=== PATIENT | male | born 1970 | race African-American/Black ===

== ENCOUNTER 2017-11-03 14:22 | Emergency (ER) | payer OTHER ==
[~2017-11-03] VITALS: Ht 182.9 cm; Wt 99.8 kg
[~2017-11-03 14:22] MED LIST: AMLODIPINE BESYL5 MG PO
--- NOTE | 2017-11-03 15:38 | Emergency Room Report ---
History of Present Illness General Chief Complaint: Lower Extremity Injury Source: Patient Present Illness HPI 47 y.o. M with hx of HTN, uncontrolled, here c/o left ankle and left foot pain since this AM post twisting injury while running. pt denies fall, head trauma, denies pain radiation, tingling/numbness. rates pain 5/10 when walking and 2/10 when non ambulotary. did not take any pain meds. denies sob, palpitation, cp, vision changes, dizziness. does not take her BP med. Allergies: Coded Allergies: NO KNOWN DRUG ALLERGIES (Verified Allergy, Unknown, 11/03/17) Patient History Past Medical History: see triage record Past Surgical History: none Pertinent Family History: none Immunizations: UTD Reviewed Nursing Documentation: PMH: Agreed; PSxH: Agreed Nursing Documentation-PMH Hx Cardiac Problems: Yes Hx Hypertension: Yes Hx Cancer: No Hx Gastrointestinal Problems: No Review of Systems All Other Systems: negative except mentioned in HPI Physical Exam Vital Signs Date Time Temp Pulse Resp B/P (MAP) Pulse Ox O2 Delivery O2 Flow Rate FiO2 11/03/17 15:06 98.3 96 20 162/108 98 Room Air 98.2 Sp02 EP Interpretation: reviewed, normal General Appearance: normal inspection, well appearing, no apparent distress, alert, GCS 15 Head: normocephalic, atraumatic Eyes: bilateral eye normal inspection, bilateral eye PERRL ENT: normal ENT inspection Neck: normal inspection, full range of motion, supple Respiratory: normal inspection, chest non-tender, lungs clear, normal breath sounds, no rhonchi, no respiratory distress, no retraction, no accessory muscle use Cardiovascular #1: normal inspection, normal peripheral pulses, regular rate, rhythm, no edema, no gallop, no JVD, no murmur, no rub Cardiovascular #2: 2+ radial (R), 2+ radial (L), 2+ dorsalis pedis (R), 2+ dorsalis pedis (L) Gastrointestinal: normal inspection, normal bowel sounds, non tender, soft Rectal: deferred Genitourinary: deferred Musculoskeletal: back normal, digits/nails normal, gait/station normal, no calf tenderness, decreased range of motion, other - crepitus over left lateral maleolous , tender - 5th metatarsal TTP Neurologic: normal inspection, alert, oriented x3, responsive Psychiatric: normal inspection, judgement/insight normal Reflexes: 2+ ankle (R), 2+ ankle (L) Skin: normal inspection, normal color, no rash Lymphatic: normal inspection, no adenopathy Procedures Splinting Splinting : Consent: Verbal Splint: poserior short Pre-Proc Neuro Vasc Exam: normal Patient Tolerated: Well Medical Decision Making PA Attestation all orders, dx, tx plans reviewed and discussed with my supervising physician Dr Robison Diagnostic Impression: Primary Impression: Foot fracture, left Additional Impression: Ankle sprain ER Course 47 y.o. M with hx of HTN, uncontrolled, here c/o left ankle and left foot pain since this AM post twisting injury while running. pt denies fall, head trauma, denies pain radiation, tingling/numbness. rates pain 5/10 when walking and 2/10 when non ambulotary. did not take any pain meds. denies sob, palpitation, cp, vision changes, dizziness. does not take her BP med. Ddx considered but are not limited to ankle sprain, ankle fx, nerve impingement Vital signs: are WNL, pt. is afebrile H&PE are most consistent with [ ] ORDERS: left ankle and foot Xray ED INTERVENTIONS: None required at this time. Other X-Ray Diagnostic Results Other X-Ray Diagnostic Results : X-Ray ordered: left foot and left ankle # of Views/Limited Vs Complete: 2 View Indication: Other - twisting injury EP Interpretation: Yes PA Xray: Interpretation reviewed, by supervising MD, and agrees with findings. Interpretation: no dislocation, other - oblique fx of left fifth metatarsal Impression: Other - acute Electronically Signed by: Lee Tanner PA-C Last Vital Signs Date Time Temp Pulse Resp B/P (MAP) Pulse Ox O2 Delivery O2 Flow Rate FiO2 11/03/17 15:06 98.3 96 20 162/108 98 Room Air 98.2 Disposition: HOME, SELF-CARE Condition: Stable Scripts Acetaminophen* (TYLENOL EXTRA STRENGTH*) 500 Mg Tablet 500 MG ORAL Q12HR PRN for Mild Pain/Temp > 100.5 for 7 Days, #14 TAB 0 Refills Prov: Lee Cifuentes PMargo 11/03/17 Patient Instructions: Avulsion Fracture of the Foot, Ankle Sprain Additional Instructions: take meds as prescribed, f/u pcp, avoid extraneous physical activity. ED precautions Lee Cifuentes Nov 03, 2017 15:38
[2017-11-03] MEDS ORDERED: TYLENOL EXTRA500 MG ORAL (16:26)
--- NOTE | 2017-11-03 16:27 | Diagnostic Imaging Report ---
EXAM: XR Left Ankle Complete, 3 or More Views CLINICAL HISTORY: TRAUMA TECHNIQUE: Frontal, lateral and oblique views of the left ankle. COMPARISON: No relevant prior studies available. FINDINGS: Bones/joints: Oblique fracture of the fifth metatarsal of the foot. Ankle mortise intact. No dislocation. Soft tissues: Unremarkable. IMPRESSION: 1. Oblique fracture of the fifth metatarsal of the foot. 2. Ankle mortise intact.
--- NOTE | 2017-11-03 16:28 | Diagnostic Imaging Report ---
EXAM: XR Left Foot Complete, 2 or More Views CLINICAL HISTORY: TRAUMA TECHNIQUE: Frontal, lateral views of the left foot. COMPARISON: No relevant prior studies available. FINDINGS: Bones/joints: Oblique minimally displaced fracture of the fifth metatarsal shaft. No dislocation. Soft tissues: Unremarkable. No radiopaque foreign body. IMPRESSION: Oblique minimally displaced fracture of the fifth metatarsal shaft. No dislocation.
[2017-11-03 16:47] VITALS: BP 160/98
== END 2017-11-03 17:00 | disposition home or self-care (01) ==
LOC: EMR 16:59
DX: S92.352A Displaced fracture of fifth metatarsal bone, left foot, initial encounter for closed fracture (principal); S93.402A Sprain of unspecified ligament of left ankle, initial encounter; X50.1XXA Overexertion from prolonged static or awkward postures, initial encounter; Y93.02 Activity, running; Y92.89 Other specified places as the place of occurrence of the external cause; I10 Essential (primary) hypertension
CPT/HCPCS: 29515; 99284